=== PATIENT | female | born 1955 | race Two or more races ===

== ENCOUNTER 2016-07-29 11:05 | Day surgery (SDC) | payer MEDICARE ==
[~2016-07-29 11:05] MED LIST: IV LACTATED RINGERS SOLUTION 1,000 ML BAG IV ONE; PROPOFOL 200 MG/20 ML BOTTLE IV ONE
[2016-07-29 11:54] LABS: BASOPHILS # (AUTO) 0.1 K/uL (0.0-8.0); BASOPHILS % (AUTO) 0.7 % (0.0-2.0); EOSINOPHILS # (AUTO) 0.5 K/uL (0.0-0.7); EOSINOPHILS % (AUTO) 5.7 % (0.0-7.0); HEMATOCRIT 41.3 % (31.2-41.9); HEMOGLOBIN 14.1 g/dL (10.9-14.3); LYMPHOCYTES # (AUTO) 1.9 K/uL (20.0-40.0); LYMPHOCYTES % (AUTO) 22.8 % (20.5-51.5); MEAN CORPUSCULAR HEMOGLOBIN 27.9 uug (24.7-32.8); MEAN CORPUSCULAR HGB CONC 34 g/dL (32.3-35.6); MEAN CORPUSCULAR VOLUME 81.7 fL (75.5-95.3); MONOCYTES # (AUTO) 0.5 K/uL (2.0-10.0); MONOCYTES % (AUTO) 6.4 % (0.0-11.0); NEUTROPHILS # (AUTO) 5.2 K/uL (1.8-8.9); NEUTROPHILS % (AUTO) 64.4 % (38.5-71.5); PLATELET COUNT (AUTO) 246 K/uL (179-408); RED BLOOD CELL COUNT(AUTO) 5.05 MIL/uL (3.63-4.92); RED CELL DISTRIBUTION WIDTH 15.6 % (12.3-17.7); WHITE BLOOD COUNT (AUTO) 8.2 K/uL (3.8-11.8)
[2016-07-29 12:05] LABS: CALCIUM 9.1 mg/dL (8.5-10.1); CREATININE 0.7 mg/dL (0.6-1.3); POTASSIUM 3.7 mmol/L (3.5-5.1)
[2016-07-29 12:17] LABS: *BILIRUBIN,URIN NEGATIVE (NEGATIVE); *BLOOD, URINE Trace-intact (NEGATIVE); *CLARITY,URINE CLEAR (CLEAR); *COLOR,URINE YELLOW (YELLOW); *KETONES,URINE NEGATIVE (NEGATIVE); *PROTEIN,URINE NEGATIVE (NEGATIVE); *UROBILINOGEN,URINE 0.2 E.U./dl (NORMAL); LEUKOCYTE ESTERASE ,URINE NEGATIVE (NEGATIVE); NITRITE, URINE NEGATIVE (NEGATIVE); UGLUCOSE NEGATIVE (NEGATIVE)
[2016-07-29 12:23] LABS: BACTERIA,URINE FEW /HPF (NONE SEEN); RBC,URINE 0-3 /HPF (0-3); SQUAMOUS EPITHELIAL CELL,UR MODERATE /HPF (NONE SEEN); WBC,URINE 0-3 /HPF (0-3)
== END 2016-07-29 14:15 | disposition home or self-care (01) ==
LOC: DS 11:05
PROVIDERS: ATTEND Internal Medicine Gastroenterology
DX: K29.80 Duodenitis without bleeding (principal); K63.5 Polyp of colon; K21.9 Gastro-esophageal reflux disease without esophagitis; J45.909 Unspecified asthma, uncomplicated; M54.5 Low back pain; I10 Essential (primary) hypertension
CPT/HCPCS: 36415; 43235; 71010; 85025; 85730; 93005; A4217; A4663; J3490; J7120

== ENCOUNTER 2023-08-23 22:59 | Emergency (ER) | payer MEDICARE, OTHER ==
[~2023-08-23] VITALS: Ht 170.2 cm; Wt 79.8 kg
[2023-08-23] MEDS ORDERED: BUDE10.2 IH (23:29)
[2023-08-23] MEDS ORDERED: SUCR1TAB PO (23:29)
[2023-08-23] MEDS ORDERED: SEMA0.5P SUBCUT (23:29)
[2023-08-23] MEDS ORDERED: ALBU18HF2 IH (23:29)
[2023-08-23] MEDS ORDERED: ERGO500040 PO (23:29)
[2023-08-23] MEDS ORDERED: DICY10CA13 PO (23:29)
[2023-08-23] MEDS ORDERED: PANT40TA2 PO (23:29)
[2023-08-23] MEDS ORDERED: IBAN150T21 PO (23:29)
[2023-08-23] MEDS ORDERED: OXYC40TA50 PO (23:29)
[2023-08-23] MEDS ORDERED: LEVO5TAB13 PO (23:29)
[2023-08-23] MEDS ORDERED: CLOT21CR7 VG (23:29)
[2023-08-23] MEDS ORDERED: FLUT1DIS28 IH (23:29)
[2023-08-23] MEDS ORDERED: ONDA-104 PO (23:29)
[2023-08-23] MEDS ORDERED: MELA10CA PO (23:29)
[2023-08-23] MEDS ORDERED: LINA290C PO (23:29)
[2023-08-23] MEDS ORDERED: DICL112S2 TP (23:29)
[2023-08-23] MEDS ORDERED: CYAN-10 IJ (23:29)
[2023-08-23] MEDS ORDERED: ASPI81TA31 PO (23:29)
[2023-08-23] MEDS ORDERED: BUME1TAB8 PO (23:29)
[2023-08-23] MEDS ORDERED: DILT360C28 PO (23:29)
[2023-08-23] MEDS ORDERED: OXYC30TA2 PO (23:29)
[2023-08-23] MEDS ORDERED: DICL100G31 TP (23:29)
[2023-08-23] MEDS ORDERED: CELE200C PO (23:29)
[2023-08-23] MEDS ORDERED: CLON0.1T PO (23:29)
[2023-08-23] MEDS ORDERED: GABA-532 PO (23:29)
[2023-08-24] MEDS: OXYCODONE HCL 40 MG TAB.SR.12H PO ONE (00:42)
[2023-08-24] MEDS: OXYCODONE HCL 40 MG TAB.SR.12H PO STA (00:45)
[2023-08-24] MEDS ORDERED: KETOROLAC TROMETHAMINE 30 MG INJ ONE (00:47)
[2023-08-24] MEDS: KETOROLAC TROMETHAMINE 30 MG INJ IM ONE (00:55)
[2023-08-24 01:17] VITALS: BP 121/83; TEMP 98; O2SAT 98
== END 2023-08-24 01:05 | disposition home or self-care (01) ==
LOC: ER 23:01
DX: M25.512 Pain in left shoulder (principal); F11.23 Opioid dependence with withdrawal; M79.10 Myalgia, unspecified site; J45.909 Unspecified asthma, uncomplicated; F17.200 Nicotine dependence, unspecified, uncomplicated; Z98.890 Other specified postprocedural states; Z79.899 Other long term (current) drug therapy; Z79.82 Long term (current) use of aspirin
CPT/HCPCS: 99283; 96372; J1885; A4606; A4663